=== PATIENT | female | born 1985 | race Caucasian/White ===

== ENCOUNTER 2018-09-13 19:00 | Emergency (ER) | payer MEDICAID ==
[~2018-09-13] VITALS: Ht 160 cm; Wt 64.9 kg
[2018-09-13 19:06] VITALS: BP 91/66
--- NOTE | 2018-09-13 19:09 | NUR ---
PT AMBULATORY TO ER LOBBY W/ STEADY GAIT IN STABLE CONDITION.
--- NOTE | 2018-09-13 19:40 | NUR ---
PT TAKEN TO BED 5
--- NOTE | 2018-09-13 19:49 | NUR ---
PT BIB SELF FOR CP X1 DAY. PT REPORTS BURNING PAIN STARTING THIS MORNING WHEN SHE EATS, BUT IT HAS SINCE BECOME SEVERE STABING PAIN ON THE R SIDE OF HER CHEST THAT RADIATES TO BACK. HEART RRR. RR SYMMETRICAL, NON-LABORED, CLEAR BREATH SOUNDS THROUGHOUT. VSS. ER MD TO SEE PT. SAFETY PRECAUTIONS IN PLACE, WILL CONTINUE TO MONITOR. MEDHX: NONE RX:NONE
--- NOTE | 2018-09-13 20:33 | NUR ---
PT RESTING COMFORTABLY IN BED, VSS, PT STATES NO CP AT THIS TIME. WILL CONTINUE TO MONITOR.
[2018-09-13 22:16] VITALS: BP 95/59
--- NOTE | 2018-09-13 22:16 | NUR ---
PT left without discharge. Ambulatory with steady gait.
== END 2018-09-13 22:16 | disposition home or self-care (01) ==
LOC: MED 19:00
DX: R07.89 Other chest pain (principal)
CPT/HCPCS: 71046; 93005; 99283

== ENCOUNTER 2019-10-20 23:46 | Emergency (ER) | payer MEDICAID ==
[~2019-10-20] VITALS: Ht 160 cm; Wt 66.7 kg
[2019-10-20 23:55] VITALS: BP 131/71
--- NOTE | 2019-10-21 00:16 | NUR ---
34 y/o female placed in bed 4 c/o right leg redness and swelling.
--- NOTE | 2019-10-21 00:20 | NUR ---
Dr. Osborne examining patient.
[2019-10-21] MEDS ORDERED: NACL 0.9% 500 ML IV ONE (00:25)
[2019-10-21] MEDS ORDERED: VANCOMYCIN 1,000 MG in DEXTROSE 5% 250 ML IV ONE (00:25)
[2019-10-21] MEDS ORDERED: KETOROLAC 30 MG/ML VIAL IVP ONE (00:25)
[2019-10-21] MEDS ORDERED: VANCOMYCIN 1,000 MG VIAL ONE (01:21)
[2019-10-21 04:27] VITALS: BP 116/94
--- NOTE | 2019-10-21 04:27 | NUR ---
Patient discharged with v/s stable. She states pain relieved at 0/10. Right lower leg edema reduced. Written and verbal after care instructions given and explained. Patient alert, oriented and verbalized understanding of instructions. Ambulatory with steady gait. All questions addressed prior to discharge. ID band removed. Patient advised to follow up with PMD. Rx of Motrin, Bactrim, Keflex, and Tramadol given. Patient educated on indication of medication including possible reaction and side effects. Opportunity to ask questions provided and answered.
== END 2019-10-21 04:27 | disposition home or self-care (01) ==
LOC: MED 23:46
DX: L03.115 Cellulitis of right lower limb (principal); Z98.890 Other specified postprocedural states
CPT/HCPCS: 96365; 96375; 99284; J1885; J3370; J7030

== ENCOUNTER 2020-11-16 01:50 | Emergency (ER) | payer MEDICAID ==
[~2020-11-16] VITALS: Ht 162.6 cm; Wt 67.6 kg
[2020-11-16 01:53] VITALS: BP 110/65
--- NOTE | 2020-11-16 01:53 | NUR ---
TO BED AMBULATORY
[2020-11-16] MEDS ORDERED: KETOROLAC 60 MG/2 ML VIAL IM ONE (02:00)
--- NOTE | 2020-11-16 02:05 | NUR ---
35 YO FEMALE C/O RIGHT FOOT PAIN FOR 2D. PT STATES THAT THE PAIN IS CONSTANT STABBING PAIN 8/10. PULSES EVEN AND STRONG. NO SWELLING OR REDNESS NOTED. FOOT AND LEG NOT WARM TO THE TOUCH. PT IS ABLE TO MOVE TOES ON AFFECTED FOOT. NO PHM
[2020-11-16] MEDS ORDERED: IBUP-2213 PO (02:15)
[2020-11-16] MEDS ORDERED: CEPH500C16 PO (02:15)
[2020-11-16] MEDS ORDERED: ACET-8386 PO (02:15)
[2020-11-16] MEDS ORDERED: SULF-59 PO (02:15)
[2020-11-16 02:34] VITALS: BP 110/65
--- NOTE | 2020-11-16 02:34 | NUR ---
Patient discharged with v/s stable. Written and verbal after care instructions given and explained. Patient alert, oriented and verbalized understanding of instructions. Ambulatory with AN ASSISTIVE DEVICE AND HAS A steady gait. All questions addressed prior to discharge. ID band removed. Patient advised to follow up with PMD. Rx of NORCO, MOTRIN, KELFEX, AND BACTRIM given. Patient educated on indication of medication including possible reaction and side effects. Opportunity to ask questions provided and answered.
== END 2020-11-16 02:34 | disposition home or self-care (01) ==
LOC: MED 01:50
DX: L03.115 Cellulitis of right lower limb (principal); F17.210 Nicotine dependence, cigarettes, uncomplicated
CPT/HCPCS: 96372; 99283; J1885